=== PATIENT | female | born 1955 | race Two or more races ===

== ENCOUNTER 2018-07-24 11:15 | Outpatient (CLI) | payer OTHER | END 2018-07-24 11:44 | disposition home or self-care (01) | LOC: NUCLEAR 11:15 | DX: M81.0 Age-related osteoporosis without current pathological fracture (principal) ==

== ENCOUNTER → 2018-07-24 | Outpatient (CLI) | payer OTHER ==
[~2018-07-24] MED LIST: DICY10CA PO; INTESTINEX680 MG PO; METOCLOPRAMIDE H5 MG; OMEPRAZOLE40 MG; ZANTAC150 MG PO
== END | disposition home or self-care (01) ==
LOC: MAMO-SONO 09:15
DX: N60.11 Diffuse cystic mastopathy of right breast (principal)

== ENCOUNTER 2020-05-26 09:38 | Emergency (ER) | payer OTHER ==
[~2020-05-26] VITALS: Ht 152.4 cm; Wt 46.7 kg
[2020-05-26] MEDS ORDERED: SYNTHROID88 MCG (09:46)
[2020-05-26] MEDS ORDERED: ATENOLOL25 MG (09:46)
[2020-05-26] MEDS ORDERED: COZAAR50 MG (09:47)
[2020-05-26] MEDS ORDERED: KETO10TA2 PO (12:22)
[2020-05-26] MEDS ORDERED: LEVAQUIN500 MG PO (12:22)
== END 2020-05-26 12:58 | disposition home or self-care (01) ==
LOC: ER 09:38
DX: S52.512A Displaced fracture of left radial styloid process, initial encounter for closed fracture (principal); S00.81XA Abrasion of other part of head, initial encounter; W18.09XA Striking against other object with subsequent fall, initial encounter; Y93.01 Activity, walking, marching and hiking; Y92.488 Other paved roadways as the place of occurrence of the external cause; Y99.8 Other external cause status

== ENCOUNTER 2020-05-27 12:16 | Outpatient (CLI) | payer OTHER ==
[~2020-05-27 12:16] MED LIST changes: +ATENOLOL25 MG; +COZAAR50 MG; +KETO10TA2 PO; +LEVAQUIN500 MG PO; +SYNTHROID88 MCG
== END 2020-05-27 12:18 | disposition home or self-care (01) ==
LOC: TOM 12:16
PROVIDERS: ATTEND Orthopaedic Surgery
DX: S52.532A Colles' fracture of left radius, initial encounter for closed fracture (principal)

== ENCOUNTER 2020-06-24 16:49 | Outpatient (CLI) | payer OTHER | END 2020-06-24 17:04 | disposition home or self-care (01) | LOC: RAD 16:49 | PROVIDERS: ATTEND Orthopaedic Surgery | DX: S52.532D Colles' fracture of left radius, subsequent encounter for closed fracture with routine healing (principal) ==

== ENCOUNTER 2020-06-28 16:03 | Outpatient (CLI) | payer OTHER | END 2020-06-28 16:10 | disposition home or self-care (01) | LOC: RAD 16:03 | PROVIDERS: ATTEND Orthopaedic Surgery | DX: S52.611A Displaced fracture of right ulna styloid process, initial encounter for closed fracture (principal) ==

== ENCOUNTER 2020-09-28 09:19 | Outpatient (CLI) | payer OTHER | END 2020-09-28 09:26 | disposition home or self-care (01) | LOC: LAB 09:19 | PROVIDERS: ATTEND Orthopaedic Surgery | DX: E21.2 Other hyperparathyroidism (principal); E88.89 Other specified metabolic disorders; M81.8 Other osteoporosis without current pathological fracture; E56.1 Deficiency of vitamin K; E55.9 Vitamin D deficiency, unspecified; M85.88 Other specified disorders of bone density and structure, other site ==

== ENCOUNTER → 2021-01-10 08:34 | Outpatient (CLI) | payer OTHER | END | disposition home or self-care (01) | LOC: LAB 08:34 | PROVIDERS: ATTEND Orthopaedic Surgery | DX: E03.8 Other specified hypothyroidism (principal); E78.49 Other hyperlipidemia; E88.81 Metabolic syndrome and other insulin resistance; E83.42 Hypomagnesemia; M81.8 Other osteoporosis without current pathological fracture; M85.89 Other specified disorders of bone density and structure, multiple sites; N81.0 Urethrocele; N18.30 Chronic kidney disease, stage 3 unspecified; Z13.1 Encounter for screening for diabetes mellitus; E11.9 Type 2 diabetes mellitus without complications; R80.8 Other proteinuria; R30.0 Dysuria; N39.0 Urinary tract infection, site not specified; Z12.11 Encounter for screening for malignant neoplasm of colon; K92.0 Hematemesis; Z13.0 Encounter for screening for diseases of the blood and blood-forming organs and certain disorders involving the immune mechanism; Z13.220 Encounter for screening for lipoid disorders; I10 Essential (primary) hypertension; Z00.00 Encounter for general adult medical examination without abnormal findings; D64.89 Other specified anemias ==

== ENCOUNTER → 2021-03-31 08:00 | Outpatient (CLI) | payer OTHER | END | disposition home or self-care (01) | LOC: LAB 08:00 → ADM 09:15 → EDSTATUS 04-06 09:15 → CIR.AMB 04-06 09:15 | PROVIDERS: ATTEND Surgery | DX: K43.2 Incisional hernia without obstruction or gangrene (principal); Z20.818 Contact with and (suspected) exposure to other bacterial communicable diseases; Z20.828 Contact with and (suspected) exposure to other viral communicable diseases; I10 Essential (primary) hypertension ==

== ENCOUNTER 2022-05-24 05:31 | Inpatient (IN) | payer OTHER ==
[~2022-05-24] VITALS: Ht 61 cm; Wt 55.8 kg
[~2022-05-24 05:31] MED LIST changes: +CRESTOR10 MG PO; +RISEDRONATE PO; +SYNTHROID75 MCG PO; +VITAMIN D-40010 MCG PO
[2022-05-24] MEDS ORDERED: RISEDRONATE SO150 MG (14:25)
[2022-05-24] MEDS ORDERED: ALLERGY RELIEF10 M1 (14:25)
[2022-05-25] MEDS ORDERED: ALENDRONATE SOD70 MG (08:15)
[2022-05-25] MEDS ORDERED: FAMOTIDINE40 MG (08:16)
[2022-05-25] MEDS ORDERED: HYDROCORTISONE15 G1 (08:16)
[2022-05-25] MEDS ORDERED: OPTIMAL D31250 MCG (08:17)
[2022-05-28] MEDS ORDERED: PERCOCET 5-3251 EACH PO (14:28)
== END 2022-05-28 15:33 | disposition home or self-care (01) | DRG 337 ==
LOC: CIR.AMB 05:31 → SURH 14:18 → O/R 14:18 → SURH 14:31
PROVIDERS: ADMIT Surgery; ATTEND Surgery
PROC: 0WUF4JZ Supplement Abdominal Wall with Synthetic Substitute, Percutaneous Endoscopic Approach (ICD-10-PCS; 2022-05-24)
PROC: 0DN84ZZ Release Small Intestine, Percutaneous Endoscopic Approach (ICD-10-PCS; 2022-05-24)
PROC: 0DNW4ZZ Release Peritoneum, Percutaneous Endoscopic Approach (ICD-10-PCS; principal; 2022-05-24 10:00)
DX: K43.0 Incisional hernia with obstruction, without gangrene (principal); K66.0 Peritoneal adhesions (postprocedural) (postinfection); I11.9 Hypertensive heart disease without heart failure

== ENCOUNTER → 2022-10-30 14:32 | Outpatient (CLI) | payer OTHER ==
[~2022-10-30 14:32] MED LIST changes: +ALENDRONATE SOD70 MG; +ALLERGY RELIEF10 M1; +FAMOTIDINE40 MG; +HYDROCORTISONE15 G1; +OPTIMAL D31250 MCG; +PERCOCET 5-3251 EACH PO; +RISEDRONATE SO150 MG
== END | disposition home or self-care (01) ==
LOC: LAB 08:51
PROVIDERS: ATTEND Orthopaedic Surgery
DX: E55.9 Vitamin D deficiency, unspecified (principal); M85.9 Disorder of bone density and structure, unspecified; E56.1 Deficiency of vitamin K; E21.3 Hyperparathyroidism, unspecified; M81.8 Other osteoporosis without current pathological fracture; E83.42 Hypomagnesemia; E88.9 Metabolic disorder, unspecified